=== PATIENT | male | born 1935 | race Caucasian/White ===

== ENCOUNTER → 2016-07-20 | Outpatient (CLI) | payer MEDICARE, BC ==
[~2016-07-20] MED LIST: CARDURA4 M1 PO; CENTRUM SILVER1 EAC2 PO; COUMADIN10 MG PO; COUMADIN7.5 MG PO; HYDROCHLOROTH12.5 MG PO; LOTREL 2.5-101 EACH PO; METOPROLOL TART25 MG PO; NEXIUM PO
--- NOTE | ~2016-07-20 | US77 ---
[facility] A Service [facility] RADIOLOGY TEXT RESULTS PATIENT: KERON ISSA LOCATION: [facility] : 35 UNIT #: [id number] AGE: [address]: Ca Jefferson DO SEX: M ORDER DR: [id number] [facility] [address] [place], [place] [address] [id number] O MR#: [id number] Acc #: [id number] NAME: KERON ISSA. : 1935 SEX: M STUDY DATE/TIME: 07/20/2016 12:49 UNIT: CGUS ROOM: STUDY DESCRIPTION: US Kidney Bilateral Complete Attending Physician: Ca Jefferson D.O. Referring Physician: Ca Jefferson D.O. Ordering Physician: Ca Jefferson D.O. Primary Care Physician: Ca Jefferson D.O. MEDICAL IMAGING REPORT This report is preliminary unless electronic signature is present EXAM Renal ultrasound INDICATIONS Chronic kidney disease, BUN 20, creatinine 1.4, GFR 52. PROCEDURE Muhammad-scale and Doppler imaging of the kidneys and bladder. COMPARISON 06/18/2010 FINDINGS Right kidney measures 13.2 cm. Cortical thickness 1.2 cm. Unremarkable bladder. Left kidney measures 14 cm. Cortical thickness 1.3 cm. Both kidneys show increased echotexture. IMPRESSION Both kidneys show increased echotexture, suggesting changes of chronic renal disease. Otherwise, negative renal ultrasound. Dictated by... Andrew Read M.D. THIS IS AN ELECTRONICALLY VERIFIED REPORT Andrew Read M.D. at 07/21/2016 7:35 AM EED/psc TD: 07/20/2016 22:47 JOB #: [id number] MEDICAL IMAGING REPORT [facility] A Service [facility] RADIOLOGY TEXT RESULTS PATIENT: KERON ISSA LOCATION: [facility] : 35 UNIT #: [id number] AGE: [address]: Ca Jefferson DO SEX: M ORDER DR: Page 1 of 1 COPY
== END | disposition home or self-care (01) ==
LOC: CGUS 12:30
DX: N18.9 Chronic kidney disease, unspecified (principal); R93.421 Abnormal radiologic findings on diagnostic imaging of right kidney; R93.422 Abnormal radiologic findings on diagnostic imaging of left kidney
CPT/HCPCS: 76770